=== PATIENT | female | born 1985 | race Caucasian/White ===

== ENCOUNTER → 2017-07-08 | Outpatient (CLI) | payer OTHER ==
[2017-07-08 14:05] LABS: Basophils # (A) 0.1 k/uL (0-0.2); Basophils % (A) 1 %; Eosinophils # (A) 0.3 k/uL (0-0.7); Eosinophils % (A) 2 %; HCT 38.6 % (34.0-46.0); HGB 12.5 gm/dL (11.4-16.0); Lymphocytes # (A) 3.2 k/uL (1.0-4.8); Lymphocytes % (A) 30 %; MCH 27.3 pg (25.0-35.0); MCHC 32.5 g/dL (31.0-37.0); Monocytes # (A) 0.6 k/uL (0-1.0); Monocytes % (A) 5 %; Neutrophils # (A) 6.5 k/uL (1.3-7.7); Neutrophils % (A) 60 %; Platelet Count 295 k/uL (150-450); RBC 4.59 m/uL (3.80-5.40); RDW 12.9 % (11.5-15.5); WBC 10.7 k/uL (3.8-10.6)
[2017-07-11 14:12] LABS: Alt. alternata IgE Class CLASS III; Alternaria alternata IgE 4.61 kU/L (<0.35); Asperg. fumagatus IgE 0.74 kU/L (<0.35); Asperg. fumagatus IgE Class CLASS II; Bermuda Grass IgE <0.35 kU/L (<0.35); Birch(Com.Silvr) IgE <0.35 kU/L (<0.35); Birch(Com.Silvr) IgE Class CLASS 0; Cat Epith & Dander IgE >100.00 kU/L (<0.35); Cat Epith & Dander IgE Class CLASS VI; Clad herbarum IgE <0.35 kU/L (<0.35); Cockroach IgE 3.35 kU/L (<0.35); Cottonwood IgE 2.01 kU/L (<0.35); Dermato. farinae IgE Class CLASS I; Elm IgE <0.35 kU/L (<0.35); Maple (Box Elder) IgE 0.96 kU/L (<0.35); Maple (Box Elder) IgE Class CLASS II; Mountain Cedar IgE <0.35 kU/L (<0.35); Mountain Cedar IgE Class CLASS 0; Mouse Urine IgE Class CLASS 0; Nettle IgE <0.35 kU/L (<0.35); Nettle IgE Class CLASS 0; Oak IgE <0.35 kU/L (<0.35); Penicillium notatum IgE Class CLASS 0; Rough Marshelder IgE 1.75 kU/L (<0.35); Rough Marshelder IgE Class CLASS II; Timothy Grass IgE 9.72 kU/L (<0.35); White Ash IgE Class CLASS 0
== END | disposition home or self-care (01) ==
LOC: LABWHC1 13:17
PROVIDERS: ATTEND Internal Medicine Sleep Medicine
DX: J03.01 Acute recurrent streptococcal tonsillitis (principal); B44.81 Allergic bronchopulmonary aspergillosis
CPT/HCPCS: 36415; 82785; 85025; 86001; 86003; 86606; 86609; 87070

== ENCOUNTER 2017-10-06 18:30 | Emergency (ER) | payer OTHER ==
[2017-10-06 18:35] VITALS: BP 158/80; PULSE 81; RESP 18; TEMP 98.9
--- NOTE | 2017-10-06 18:54 | ED ---
ENT HPI - General Chief complaint: ENT Stated complaint: BLEEDING AND VOMITING POST OP TONSILECTOMY Time Seen by Provider: 10/06/17 18:46 Source: patient, RN notes reviewed Mode of arrival: ambulatory Limitations: no limitations - History of Present Illness Initial comments: 32-year-old female presents emergency Department chief complaint of bleeding post tonsillectomy. Patient states she had her tonsils removed one week ago at [place]. She states that she coughed and states that she has some blood, and she then vomited. Patient states the bleeding has stopped. Patient states that she still been having ongoing pain from the surgery. Patient has no difficulty swallowing or difficulty breathing - Related Data Allergies Allergy/AdvReac Type Severity Reaction Status Date / Time amoxicillin Allergy Unknown Verified 10/06/17 18:32 Review of Systems ROS Statement: Those systems with pertinent positive or pertinent negative responses have been documented in the HPI. ROS Other: All systems not noted in ROS Statement are negative. Past Medical History Past Medical History: Hypertension History of Any Multi-Drug Resistant Organisms: None Reported Past Surgical History: Tonsillectomy Past Psychological History: Anxiety, Depression, PTSD Smoking Status: Never smoker Past Alcohol Use History: None Reported Past Drug Use History: None Reported General Exam Limitations: no limitations General appearance: alert, in no apparent distress Head exam: Present: atraumatic, normocephalic, normal inspection Eye exam: Present: normal appearance, PERRL, EOMI. Absent: scleral icterus, conjunctival injection, periorbital swelling ENT exam: Present: mucous membranes moist. Absent: normal exam, normal oropharynx (Status post tonsillectomy. There is no active bleeding. There is an area of ecchymosis noted on the left tonsillar region) Neck exam: Present: normal inspection, full ROM. Absent: tenderness, meningismus, lymphadenopathy Respiratory exam: Present: normal lung sounds bilaterally. Absent: respiratory distress, wheezes, rales, rhonchi, stridor Cardiovascular Exam: Present: regular rate, normal rhythm, normal heart sounds. Absent: systolic murmur, diastolic murmur, rubs, gallop, clicks Skin exam: Present: warm, dry, intact, normal color. Absent: rash Course Vital Signs 10/06/17 18:32 Temperature 98.9 F Pulse Rate 81 Respiratory 18 Rate Blood Pressure 158/80 O2 Sat by Pulse 100 Oximetry Medical Decision Making - Medical Decision Making 32-year-old female presented for tonsillectomy postop bleeding. Patient had no rebleeding. In emergency department. She has gargled cold water. Patient has been stable for 45 minutes. Patient will be discharged at this time. She is recommended return for any return of symptoms or any other concerns Disposition Clinical Impression: Post-tonsillectomy hemorrhage Disposition: HOME SELF-CARE Condition: Stable Instructions: *Surgery [facility] - ([facility]) Tonsillectomy/Adenoidectomy Post-Op Instructions Additional Instructions: Please return to the Emergency Department if symptoms worsen or any other concerns. Is patient prescribed a controlled substance at d/c from ED?: No Referrals: Keely Dockery MD [Primary Care Provider] - 1-2 days Time of Disposition: 19:07
== END 2017-10-06 19:15 | disposition home or self-care (01) ==
LOC: EC 18:30
DX: J95.830 Postprocedural hemorrhage of a respiratory system organ or structure following a respiratory system procedure (principal); Z88.0 Allergy status to penicillin; Z90.89 Acquired absence of other organs
CPT/HCPCS: 99283

== ENCOUNTER → 2023-04-07 | Outpatient (CLI) | payer MEDICAID, BC, OTHER | END | disposition home or self-care (01) | LOC: LABMAIN 17:56 | PROVIDERS: ATTEND Internal Medicine | DX: Z53.9 Procedure and treatment not carried out, unspecified reason (principal) ==

== ENCOUNTER → 2024-07-18 | Outpatient (CLI) | payer MEDICAID ==
[2024-07-18 18:36] LABS: Basophils # (A) 0.08 X 10*3/uL (0.00-0.10); Basophils % (A) 0.6 %; Eosinophils # (A) 0.22 X 10*3/uL (0.04-0.35); Eosinophils % (A) 1.7 %; HCT 44.7 % (37.2-46.3); HGB 14.5 g/dL (12.0-15.0); Lymphocytes # (A) 3.74 X 10*3/uL (0.90-5.00); Lymphocytes % (A) 29.4 %; MCH 27.6 pg (27.0-32.0); MCHC 32.4 g/dL (32.0-37.0); Mean Platelet Volume 9.7 FL (9.5-12.2); Monocytes # (A) 0.81 X 10*3/uL (0.20-1.00); Monocytes % (A) 6.4 %; NRBC Per 100 WBC 0 X 10*3/uL (0.00-0.01); Neutrophils # (A) 7.81 X 10*3/uL (1.80-7.70); Neutrophils % (A) 61.5 %; Platelet Count 280 X 10*3/uL (140-440); RBC 5.26 X 10*6/uL (4.10-5.20); RDW 13.6 % (11.5-14.5); WBC 12.71 X 10*3/uL (4.50-10.00)
[2024-07-18 18:59] LABS: ALT 37 U/L (8-44); AST 27 U/L (13-35); Albumin 4.1 g/dL (3.8-4.9); Albumin/Globulin Ratio 1.86 Ratio (1.60-3.17); Alkaline Phosphatase 93 U/L (41-126); BUN/Creat Ratio 19.22 Ratio (12.00-20.00); Blood Urea Nitrogen 17.3 mg/dL (9.0-27.0); Calcium 9.2 mg/dL (8.7-10.3); Carbon Dioxide 22.9 mmol/L (21.6-31.8); Chloride 105 mmol/L (96-109); Chol/HDL Ratio 4.54 Ratio; Globulin 2.2 g/dL (1.6-3.3); Glucose 91 mg/dL (70-110); LDL Cholesterol,Calculated 85.2 mg/dL (0.0-131.0); Potassium 3.9 mmol/L (3.5-5.5); Sodium 140 mmol/L (135-145); Total Bilirubin 0.5 mg/dL (0.3-1.2); Total Protein 6.3 g/dL (6.2-8.2)
== END | disposition home or self-care (01) ==
LOC: LABWHC1 15:21
PROVIDERS: ATTEND Internal Medicine
DX: Z13.220 Encounter for screening for lipoid disorders (principal); I10 Essential (primary) hypertension; E55.9 Vitamin D deficiency, unspecified; E11.9 Type 2 diabetes mellitus without complications
CPT/HCPCS: 36415; 80053; 80061; 82043; 82306; 82570; 83036; 85025

== ENCOUNTER → 2024-07-20 | Outpatient (CLI) | payer MEDICAID ==
--- NOTE | 2024-07-23 07:21 | MM ---
Reason for Exam: Screening (asymptomatic). Baseline mammogram. Patient History: Menarche at age 7. First Full-Term at age 22. Currently using Hormonal Contraceptives, starting at age 23. 04/28/2016, Benign Core Biopsy on the right side. Risk Values: Candice 5 year model risk: 0.9%. NCI Lifetime model risk: 12.0%. Prior Study Comparison: 04/28/2016 Right Diagnostic Mammogram, [facility]. Patient's first Mammogram. Tissue Density: There are scattered areas of fibroglandular density. Findings: Analyzed By CAD. A few scattered tiny benign-appearing round calcifications throughout the bilateral breasts are present. There is a new 7 mm round circumscribed mass middle to posterior depth upper outer quadrant at site of biopsy clip. Overall Assessment: Incomplete: need additional imaging evaluation, BI-RAD 0 Management: Diagnostic Breast Ultrasound of the right breast. . Patient should continue monthly self-breast exams. A clinical breast exam by your physician is recommended on an annual basis. This exam should not preclude additional follow-up of suspicious palpable abnormalities. Note on Candice scores and lifetime risk: 1. A Candice score greater than 3% is considered moderate risk. If this is the case, consider specialist referral to assess eligibility for a risk reducing agent. 2. If overall lifetime risk for the development of breast cancer is 20% or higher, the patient may qualify for future screening with alternating mammogram and breast MRI. [facility], , 07/23/2024 7:17 AM. Electronically signed and approved by: David Padilla M.D.
== END | disposition home or self-care (01) ==
LOC: RADMAMWWP 15:25
PROVIDERS: ATTEND Internal Medicine
DX: Z12.31 Encounter for screening mammogram for malignant neoplasm of breast (principal); R92.323 Mammographic fibroglandular density, bilateral breasts; R92.1 Mammographic calcification found on diagnostic imaging of breast
CPT/HCPCS: 77063; 77067

== ENCOUNTER → 2024-07-26 | Outpatient (CLI) | payer MEDICAID ==
--- NOTE | 2024-07-26 15:58 | USB ---
Reason for Exam: Follow-up at short interval from prior study. Patient History: Menarche at age 7. First Full-Term at age 22. Currently using Hormonal Contraceptives, starting at age 23. 04/28/2016, Benign Core Biopsy on the right side. Risk Values: Candice 5 year model risk: 0.9%. NCI Lifetime model risk: 12.0%. Technique: Method: Targeted. Prior Study Comparison: 04/28/2016 Right Diagnostic Mammogram, [facility]. 07/20/2024 Bilateral MG 3D screening mammo w/cad, [facility]. Findings: The lateral section of the breast of the right breast, the axilla of the right breast and the retroareolar of the right breast were scanned. Thyroid ultrasound redemonstrates an oval circumscribed hypoechoic lesion measuring 7 x 6 x 4 mm identified positioning centimeters distance from nipple adjacent biopsy clip not significantly changed from 2016 ultrasound almost certainly benign. Overall Assessment: Probably benign, BI-RAD 3 Management: Diagnostic Mammogram of the right breast in 6 months. Diagnostic Breast Ultrasound of the right breast in 6 months. Precautionary short-term follow-up . A clinical breast exam by your physician is recommended on an annual basis and results should be correlated with mammographic findings. This exam should not preclude additional follow-up of suspicious palpable abnormalities. Results were given to the patient verbally at the time of exam. [facility], , 07/26/2024 3:54 PM. Electronically signed and approved by: David Padilla M.D.
== END | disposition home or self-care (01) ==
LOC: RADUSWWP 15:33
PROVIDERS: ATTEND Internal Medicine
DX: R92.8 Other abnormal and inconclusive findings on diagnostic imaging of breast (principal); Z79.3 Long term (current) use of hormonal contraceptives

== ENCOUNTER 2024-08-20 22:56 | Observation (INO) | payer MEDICAID ==
[2024-08-20 23:00] VITALS: RESP 18
--- NOTE | 2024-08-20 23:12 | ED ---
Chest Pain HPI - General Chief Complaint: Chest Pain Stated Complaint: Chest Tightness, Headache Time Seen by Provider: 08/20/24 22:59 Source: patient, RN notes reviewed, old records reviewed Mode of arrival: ambulatory Limitations: no limitations - History of Present Illness Initial Comments: This is a 38 female presenting with chest pain really left jaw pain and neck pain for 2 days with now chest pain chest pain is worse with a deep breath. History of the stress test patient is had stress test in the past secondary to abnormal EKG and chest pain. Patient does have high blood pressure no cholesterol no diabetes non-smoker. MD Complaint: chest pain, other (Left jaw pain left neck pain) -: days(s) Onset: during rest, during exertion Pain Location: left chest Pain Radiation: jaw/teeth Severity: moderate Severity scale (1-10): 4 Quality: aching Consistency: constant Improves With: nothing Worsens With: nothing Anginal Symptoms: dyspnea Other Symptoms: palpitations Treatments Prior to Arrival: none - Related Data Home Medications Medication Instructions Recorded Confirmed Ibuprofen [Motrin] 800 mg PO TID PRN 08/21/24 08/21/24 Tirzepatide [Mounjaro] 10 mg SQ CHEEMA 08/21/24 08/21/24 levonorgestreL [Mirena] 1 implant IY DIRECTED 08/21/24 08/21/24 lisinopriL [Zestril] 20 mg PO DAILY 08/21/24 08/21/24 Previous Rx's Medication Instructions Recorded Pantoprazole [Protonix] 40 mg PO DAILY #14 tab 08/21/24 Allergies Allergy/AdvReac Type Severity Reaction Status Date / Time amoxicillin Allergy Rash/Hives Verified 08/21/24 07:35 Penicillins Allergy Rash/Hives Verified 08/21/24 07:35 sulfamethoxazole Allergy Rash/Hives Verified 08/21/24 07:35 [From Bactrim] trimethoprim [From Bactrim] Allergy Rash/Hives Verified 08/21/24 07:35 Review of Systems ROS Statement: Those systems with pertinent positive or pertinent negative responses have been documented in the HPI. ROS Other: All systems not noted in ROS Statement are negative. EKG Findings - EKG Comments: EKG Findings:: EKG sinus 80 NC 180 QRS 87 QTc 433 - EKG Results: EKG: interpreted by SHANIQUA Past Medical History Past Medical History: Hypertension History of Any Multi-Drug Resistant Organisms: None Reported Past Surgical History: Tonsillectomy Past Psychological History: Anxiety, Depression, PTSD Past Alcohol Use History: None Reported Past Drug Use History: None Reported - Past Family History Mother Family Medical History: Hyperlipidemia, Hypertension Father Family Medical History: Hyperlipidemia, Hypertension General Exam General appearance: alert, in no apparent distress Head exam: Present: atraumatic, normocephalic, normal inspection Eye exam: Present: normal appearance, PERRL, EOMI. Absent: scleral icterus, conjunctival injection, periorbital swelling ENT exam: Present: normal exam, mucous membranes moist Neck exam: Present: normal inspection. Absent: tenderness, meningismus, lymphadenopathy Respiratory exam: Present: normal lung sounds bilaterally. Absent: respiratory distress, wheezes, rales, rhonchi, stridor Cardiovascular Exam: Present: regular rate, normal rhythm, normal heart sounds. Absent: systolic murmur, diastolic murmur, rubs, gallop, clicks GI/Abdominal exam: Present: soft, normal bowel sounds. Absent: distended, tenderness, guarding, rebound, rigid Extremities exam: Present: normal inspection, full ROM, normal capillary refill. Absent: tenderness, pedal edema, joint swelling, calf tenderness Back exam: Present: normal inspection Neurological exam: Present: alert, oriented X3, CN II-XII intact Psychiatric exam: Present: normal affect, normal mood Skin exam: Present: warm, dry, intact, normal color. Absent: rash Course Vital Signs 08/20/24 08/21/24 08/21/24 22:58 00:20 01:35 Temperature 97.9 F Pulse Rate 82 75 66 Respiratory 18 18 18 Rate Blood Pressure 154/103 139/98 150/101 O2 Sat by Pulse 98 95 95 Oximetry 08/21/24 08/21/24 08/21/24 04:49 05:23 07:09 Temperature 98.1 F Pulse Rate 68 73 73 Respiratory 18 18 18 Rate Blood Pressure 126/76 112/70 118/80 O2 Sat by Pulse 95 96 98 Oximetry 08/21/24 08/21/24 08/21/24 07:16 11:17 13:02 Temperature 98.1 F Pulse Rate 73 78 Respiratory 18 18 18 Rate Blood Pressure 131/91 138/92 O2 Sat by Pulse 98 97 Oximetry - Reevaluation(s) Reevaluation #1: 08/20/24 23:21 Medical records reviewed Reevaluation #2: 08/21/24 01:36 Patient still with nausea vomiting here in the ER Reevaluation #3: 08/21/24 01:36 Patient informed of results questions answered Reevaluation #4: Was pt. sent in by a medical professional or institution (, JONATHAN, LAND DEVELOPMENT PROJECT MANAGER, urgent care, hospital, or [place] health [place] facility...) When possible be specific @ -no Did you speak to anyone other than the patient for history (EMS, parent, family, police, friend...)? What history was obtained from this source @ -no Did you review nursing and triage notes (agree or disagree)? Why? @ -agree Are old charts reviewed (outside hosp., previous admission, EMS record, old EKG, old radiological studies, urgent care reports/EKG's, [place] health care facility records)? Report findings @ -yes Differential Diagnosis (chest pain, altered mental status, abdominal pain women, abdominal pain men, vaginal bleeding, weakness, fever, dyspnea, syncope, headache, dizziness, GI bleed, back pain, seizure, CVA, palpatations, mental health, musculoskeletal)? @ -prior EKG interpreted by me (3pts min.). @ -yes X-rays interpreted by me (1pt min.). @ -yes negative for acute disease CT interpreted by me (1pt min.). @ -Yes negative for acute disease U/S interpreted by me (1pt. min.). @ -no What testing was considered but not performed or refused? (CT, X-rays, U/S, labs)? Why? @ -none What meds were considered but not given or refused? Why? @ -none Did you discuss the management of the patient with other professionals (professionals i.e. JONATHAN Pimentel, LAND DEVELOPMENT PROJECT MANAGER, lab, RT, psych nurse, social service coordinator, bindery machine operator, teacher, loan service officer, case aide)? Give summary @ -no Was smoking cessation discussed for >3mins.? @ -no Was critical care preformed (if so, how long)? @ -no Were there social determinants of health that impacted care today? How? (Homelessness, low income, unemployed, alcoholism, drug addiction, transportation, low edu. Level, literacy, decrease access to med. care, long term, rehab)? @ -none Was there de-escalation of care discussed even if they declined (Discuss DNR or withdrawal of care, Hospice)? DNR status @ -no What co-morbidities impacted this encounter? (DM, HTN, Smoking, COPD, CAD, Cancer, CVA, ARF, Chemo, Hep., AIDS, mental health diagnosis, sleep apnea, morbid obesity)? @ -none Was patient admitted / discharged? Hospital course, mention meds given and route, prescriptions, significant lab abnormalities, going to OR and other pertinent info. @ - 38 female to ER for chest pain left-sided jaw pain patient admitted for chest pain observation found to have pancreatitis here in the ER as well history of gallbladder surgery patient kept n.p.o. pain control and will admit for further supportive care Admitted acute pancreatitis with chest pain Undiagnosed new problem with uncertain prognosis? @ -no Drug Therapy requiring intensive monitoring for toxicity (Heparin, Nitro, Insulin, Cardizem)? @ -no Were any procedures done? @ -no Diagnosis/symptom? @ - Acute, or Chronic, or Acute on Chronic? @ -Acute Uncomplicated (without systemic symptoms) or Complicated (systemic symptoms)? @ -Complicated Side effects of treatment? @ -no Exacerbation, Progression, or Severe Exacerbation? @ -exacerbation Poses a threat to life or bodily function? How? (Chest pain, [place], [place], pneumonia, PE, COPD, DKA, ARF, appy, cholecystitis, CVA, Diverticulitis, Homicidal, Suicidal, threat to staff... and all critical care pts) @ -yes with chest pain Reevaluation #5: Differential Chest Pain: Stable Angina, Unstable Angina, STEMI, NSTEMI Aortic Dissection, Pneumothorax, Musculoskeletal, Esophageal Spasm GERD, Cholecystitis, Pancreatitis, Zoster, this is not meant to be an all-inclusive list. - Consultations Consultation #1: Spoke with [facility] who agrees to admit this patient Chest Pain MDM - MDM 38 female to ER for chest pain left-sided jaw pain patient admitted for chest pain observation found to have pancreatitis here in the ER as well history of gallbladder surgery patient kept n.p.o. pain control and will admit for further supportive care Disposition Clinical Impression: Atypical chest pain, Chest pain, Pancreatitis Disposition: ADMITTED IP TO THIS HOSP Condition: Stable Is patient prescribed a controlled substance at d/c from ED?: No Time of Disposition: 01:00
[2024-08-20 23:24] LABS: Basophils # (A) 0.07 10*3/uL (0.00-0.10); Basophils % (A) 0.6 %; Eosinophils # (A) 0.29 10*3/uL (0.04-0.35); Eosinophils % (A) 2.4 %; HCT 41.8 % (37.2-46.3); HGB 13.8 g/dL (12.0-15.0); Lymphocytes % (A) 30.7 %; MCH 27.8 pg (27.0-32.0); MCV 84.3 fL (80.0-97.0); Mean Platelet Volume 8.9 fL (9.5-12.2); Monocytes % (A) 8.3 %; Neutrophils # (A) 6.96 10*3/uL (1.80-7.70); Neutrophils % (A) 57.6 %; Platelet Count 258 10*3/uL (140-440); RBC 4.96 10*6/uL (4.10-5.20); RDW 13.8 % (11.5-14.5); WBC 12.07 10*3/uL (4.50-10.00)
[2024-08-20 23:40] LABS: ALT 259 U/L (4-34); African American GFR (CKD) >90 (>60 ml/min/1.73 sqM); Anion Gap 6 mmol/L; Blood Urea Nitrogen 15 mg/dL (7-17); Calcium 8.9 mg/dL (8.4-10.2); Carbon Dioxide 26 mmol/L (22-30); Chloride 103 mmol/L (98-107); Glucose 101 mg/dL (74-99); Lipase 590 U/L (23-300); Non-African American GFR(CKD) >90 (>60 ml/min/1.73 sqM); Sodium 135 mmol/L (137-145); Total Bilirubin 1.1 mg/dL (0.2-1.3)
[2024-08-20 23:42] LABS: AST 226 U/L (14-36); Alkaline Phosphatase 131 U/L (38-126); Potassium 4.3 mmol/L (3.5-5.1); Total Protein 6.9 g/dL (6.3-8.2)
[2024-08-20 23:46] LABS: INR 0.8 (<1.2); Partial Thromboplastin Time 22.9 sec (22.0-30.0); Prothrombin Time 9.4 sec (10.0-12.5)
[2024-08-20 23:48] LABS: NT-Pro-B-Type Natriuretic Pept <20 pg/mL
[2024-08-21] MEDS: KETOROLAC 15 MG/ML 1 ML VIAL IVP STA (00:33)
[2024-08-21] MEDS: SODIUM CHLORIDE 0.9% 1,000 ML IV ONE (00:39)
[2024-08-21] MEDS: HYDROmorphone 1 MG/ML 1 ML SYRINGE IVP STA (00:39)
[2024-08-21] MEDS: ONDANSETRON 4 MG/2 ML VIAL IVP STA ×2 (00:49→01:28)
[2024-08-21] MEDS ORDERED: NALOXONE 0.4 MG/ML 1 ML VIAL IV PRN (01:33)
[2024-08-21] MEDS ORDERED: ONDANSETRON 4 MG/2 ML VIAL IVP PRN (01:33)
[2024-08-21] MEDS ORDERED: KETOROLAC 15 MG/ML 1 ML VIAL IVP PRN (01:33)
[2024-08-21] MEDS ORDERED: HYDROmorphone 1 MG/ML 1 ML SYRINGE IVP PRN (01:33)
--- NOTE | 2024-08-21 01:39 | XR ---
EXAM: XR Chest, 2 Views CLINICAL HISTORY: ITS.REASON XR Reason: Chest Pain TECHNIQUE: Frontal and lateral views of the chest. COMPARISON: No relevant prior studies available. FINDINGS: Lungs: No consolidation or mass. Pleural space: No effusion. Heart: Mild cardiomegaly. Bones/joints: No acute findings. IMPRESSION: No acute cardiopulmonary process.
[2024-08-21] MEDS: SODIUM CHLORIDE 0.9% 1,000 ML IV SCH (02:52)
--- NOTE | 2024-08-21 02:58 | CT ---
EXAM: CT Abdomen and Pelvis With Intravenous Contrast CLINICAL HISTORY: ITS.REASON CT Reason: pain ,pancreatitis TECHNIQUE: Axial computed tomography images of the abdomen and pelvis with intravenous contrast. CTDI is 49 mGy and DLP is 2529.6 mGy-cm. This CT exam was performed using one or more of the following dose reduction techniques: automated exposure control, adjustment of the mA and/or kV according to patient size, and/or use of iterative reconstruction technique. COMPARISON: No relevant prior studies available. FINDINGS: Lung bases: Unremarkable. No mass. No consolidation. ABDOMEN: Liver: Unremarkable. No mass. Gallbladder and bile ducts: Unremarkable. No calcified stones. No ductal dilation. Pancreas: Unremarkable. No mass. No ductal dilation. Spleen: Unremarkable. No splenomegaly. Adrenals: Unremarkable. No mass. Kidneys and ureters: Nonobstructing 4 mm LEFT lower pole renal stone. Stomach and bowel: Diverticulosis, without acute diverticulitis. No small bowel obstruction. No free intraperitoneal air. PELVIS: Appendix: No findings to suggest acute appendicitis. Bladder: Unremarkable. No mass. Reproductive: ED in the uterus. LEFT ovarian cyst measures 2.0 x 2.0 cm. ABDOMEN and PELVIS: Intraperitoneal space: Unremarkable. No free air. No significant fluid collection. Bones/joints: No acute fracture. No dislocation. Soft tissues: Unremarkable. Vasculature: Unremarkable. No abdominal aortic aneurysm. Lymph nodes: Unremarkable. No enlarged lymph nodes. IMPRESSION: 1. Nonobstructing 4 mm LEFT lower pole renal stone. 2. Diverticulosis, without acute diverticulitis. No small bowel obstruction. No free intraperitoneal air. 3. No pancreatitis.
[2024-08-21] MEDS: lisinopriL 20 MG TAB PO SCH (08:08)
[2024-08-21] MEDS: PANTOPRAZOLE 40 MG/10 ML VIAL IV SCH (08:08)
[2024-08-21] MEDS: LACTATED RINGERS 1,000 ML IV SCH (08:09)
[2024-08-21 12:19] LABS: ALT 216 U/L (4-34); AST 136 U/L (14-36); African American GFR (CKD) >90 (>60 ml/min/1.73 sqM); Albumin 3.5 g/dL (3.5-5.0); Albumin/Globulin Ratio 1.3; Alkaline Phosphatase 133 U/L (38-126); Anion Gap 4 mmol/L; Blood Urea Nitrogen 11 mg/dL (7-17); Calcium 8.8 mg/dL (8.4-10.2); Carbon Dioxide 26 mmol/L (22-30); Chloride 104 mmol/L (98-107); Globulin 2.6 g/dL; Glucose 80 mg/dL (74-99); Non-African American GFR(CKD) >90 (>60 ml/min/1.73 sqM); Potassium 3.7 mmol/L (3.5-5.1); Sodium 134 mmol/L (137-145); Total Bilirubin 1.1 mg/dL (0.2-1.3); Total Protein 6.1 g/dL (6.3-8.2)
--- NOTE | 2024-08-21 12:30 | US ---
EXAMINATION TYPE: US abdomen limited DATE OF EXAM: 08/21/2024 COMPARISON: CT: Today CLINICAL INDICATION: Female, 38 years old with history of liver/gb/pancreas; pancreatitis TECHNIQUE: Grayscale and color Doppler imaging of the right upper quadrant was performed. FINDINGS: EXAM MEASUREMENTS: Liver Length: 15.7 cm Gallbladder Wall: Surgically absent CBD: 0.2 cm Right Kidney: 10.9 x 6.2 x 4.9 cm COTTAGE SUPERVISOR NOTES: Pancreas: only the head is visualized and appears wnl. Tail obscured by overlying bowel gas Liver: heterogeneous Gallbladder: Surgically absent CBD: wnl Right Kidney: wnl The visualized portions of the pancreas unremarkable. Liver is heterogenous without cirrhotic morphol ogy. No focal lesion. Gallbladder surgically absent. Common bile duct is within normal limits. Right kidney demonstrates no hydronephrosis, shadowing calculus or solid mass. IMPRESSION: 1. No ultrasound evidence for acute process. 2. Post cholecystectomy changes. [facility], , 08/21/2024 12:27 PM
--- NOTE | 2024-08-21 13:48 | P.HPIM ---
History of Present Illness H&P Date: 08/21/24 History of present illness; Patient is a 38 female with hypertension and depression who presents with chest pain. She states her symptoms began 2 days ago with left jaw and neck pain extending to her shoulder for 2 days, which has now progressed to chest pain. Chest pain is worse with a deep breath. She was recently treated for cold and given steroid with antibiotics. She states she completed a stress test in the past, secondary to abnormal EKG and chest pain. She denies abdominal pain, naus ea, vomiting, constipation, diarrhea. She is otherwise well. Spoke with the ER physician, patient admission was accepted by internal medicine service for treatment. REVIEW OF SYSTEMS: Pertinent positives and negatives noted in HPI. PHYSICAL EXAMINATION: Vitals reviewed GENERAL: Resting comfortably in bed. Obese. EYES: PERRL, no scleral injection or icterus. No vision loss HENT: Normocephalic, atraumatic, hearing grossly intact, moist mucous membranes NECK: No tracheal deviation, full range of motion. CARDIOVASCULAR: S1 and S2 present. No murmurs, rubs, or gallops. PULMONARY: Chest is clear to auscultation, no wheezing, rhonchi, or crackles. ABDOMEN: Soft, nontender, nondistended. No palpable organomegaly. MUSCULOSKELETAL: No apparent joint swelling and deformities. EXTREMITIES: No apparent cyanosis, clubbing. No pedal edema. NEUROLOGICAL: Alert and oriented. Gross neurological examination with no apparent focal deficits. SKIN: No apparent rashes. ER FINDINGS: Labs significant for WBC 12.0, PT 9.4, sodium 135, glucose 101, AST 226, ALT 259, ALP 131, troponin 3 times negative, proBNP negative, lipase 590 EKG independently interpreted showed sinus rhythm heart rate of 80, QTc 433, no ST segment elevation or depression seen, no T-wave inversions seen. Chest x-ray done independently interpreted showed no acute cardiopulmonary process. Abdominal pelvis CT independently read with findings of nonobstructing 4 mm left lower pole renal stone, diverticulosis without acute diverticulitis no SBO, no pancreatitis RUQ ultrasound independently interpreted status post cholecystectomy, no pancreatitis, liver without cirrhotic pathology Assessment and Plan: In summary, patient is a 38 female with hypertension and depression who presents with chest pain. # Elevated lipase #Transaminitis # Left shoulder pain #Atypical chest pain #Leukocytosis, likely reactive Initial lipase 590 - Lipid panel 07/2024 findings of triglycerides elevated 194, HDL [address] abdomen with contrast nonobstructing 4 mm left lower pole renal stone, diverticulosis without acute diverticulitis no SBO, no pancreatitis US abdomen postcholecystectomy, no pancreatitis, heterogeneous liver without cirrhotic morphology. D-dimer negative Continue pain management Start LR 150mL/hr Continue regular diet Monitor vitals and urine output Chronic Medical Conditions #Anxiety/Depression #Hypertension resume home medications DVT ppx: Subq Lovenox 40 meq daily Code status: Full code F: P.o. E: Replete as needed N: Regular diet as tolerated Anticipated discharge place: Home Anticipated discharge time: Today Dr. Rolle seen patient with resident, present during exam, and agreed with findings. Dictation was produced using [employer] dictation software. Please excuse any grammatical, word or spelling errors. Past Medical History Past Medical History: Hypertension Additional Past Medical History / Comment(s): Sleep Apnea History of Any Multi-Drug Resistant Organisms: None Reported Past Surgical History: Tonsillectomy Past Psychological History: Anxiety, Depression, PTSD Past Alcohol Use History: None Reported Past Drug Use History: None Reported - Past Family History Mother Family Medical History: Hyperlipidemia, Hypertension Father Family Medical History: Hyperlipidemia, Hypertension Medications and Allergies Home Medications Medication Instructions Recorded Confirmed Type Ibuprofen [Motrin] 800 mg PO TID PRN 08/21/24 08/21/24 History Tirzepatide [Mounjaro] 10 mg SQ CHEEMA 08/21/24 08/21/24 History levonorgestreL [Mirena] 1 implant IY DIRECTED 08/21/24 08/21/24 History lisinopriL [Zestril] 20 mg PO DAILY 08/21/24 08/21/24 History Allergies Allergy/AdvReac Type Severity Reaction Status Date / Time amoxicillin Allergy Rash/Hives Verified 08/21/24 07:35 Penicillins Allergy Rash/Hives Verified 08/21/24 07:35 sulfamethoxazole Allergy Rash/Hives Verified 08/21/24 07:35 [From Bactrim] trimethoprim [From Bactrim] Allergy Rash/Hives Verified 08/21/24 07:35 Physical Exam Vitals: Vital Signs Temp Pulse Resp BP Pulse Ox 08/21/24 07:16 18 08/21/24 07:09 98.1 F 73 18 112/70 98 08/21/24 05:23 73 18 112/70 96 08/21/24 04:49 68 18 126/76 95 08/21/24 01:35 66 18 150/101 95 08/21/24 00:20 75 18 139/98 95 08/20/24 22:58 97.9 F 82 18 154/103 98 Intake and Output 08/20/24 08/21/24 08/21/24 22:59 06:59 14:59 Other: Weight 115.666 kg Results CBC & Chem 7: 08/20/24 23:16 08/21/24 11:52 Labs: Abnormal Lab Results - Last 24 Hours (Table) 08/20/24 08/20/24 08/20/24 Range/Units 23:16 23:16 23:16 WBC 12.07 H (4.50-10.00) 10*3/uL MPV 8.9 L (9.5-12.2) fL Immature Gran # 0.05 H (0.00-0.04) 10*3/uL PT 9.4 L (10.0-12.5) sec Sodium 135 L (137-145) mmol/L Glucose 101 H (74-99) mg/dL AST 226 H (14-36) U/L ALT 259 H (4-34) U/L Alkaline Phosphatase 131 H (38-126) U/L Lipase 590 H (23-300) U/L
--- NOTE | 2024-08-21 13:57 | P.DS ---
Providers Date of admission: 08/21/24 01:35 Expected date of discharge: 08/21/24 Attending physician: Pam Degroot Primary care physician: Keely Dockery Hospital Course: Discharge diagnoses; # Elevated lipase #Transaminitis # Left shoulder pain #Atypical chest pain #Leukocytosis, likely reactive #Anxiety/Depression #Hypertension Hospital course; History of present illness; Patient is a 38 female with hypertension and depression who presents with chest pain. She states her symptoms began 2 days ago with left jaw and neck pain extending to her shoulder for 2 days, which has now progressed to chest pain. Chest pain is worse with a deep breath. She was recently treated for cold and given steroid with antibiotics. She states she completed a stress test in the past, secondary to abnormal EKG and chest pain. She denies abdominal pain, nausea, vomiting, constipation, diarrhea. She is otherwise well. ER FINDINGS: Labs significant for WBC 12.0, PT 9.4, sodium 135, glucose 101, AST 226, ALT 259, ALP 131, troponin 3 times negative, proBNP negative, lipase 590 EKG independently interpreted showed sinus rhythm heart rate of 80, QTc 433, no ST segment elevation or depression seen, no T-wave inversions seen. Chest x-ray done independently interpreted showed no acute cardiopulmonary process. Abdominal pelvis CT independently read with findings of nonobstructing 4 mm left lower pole renal stone, diverticulosis without acute diverticulitis no SBO, no pancreatitis RUQ ultrasound independently interpreted status post cholecystectomy, no pancreatitis, liver without cirrhotic pathology Discharged home in stable condition. Given short course of pantoprazole for discharge. Patient to follow-up with PCP and repeat CMP for transaminitis, CBC for leukocytosis. PHYSICAL EXAMINATION: Vitals reviewed GENERAL: Resting comfortably in bed. Obese. EYES: PERRL, no scleral injection or icterus. No vision loss HENT: Normocephalic, atraumatic, hearing grossly intact, moist mucous membranes NECK: No tracheal deviation, full range of motion. CARDIOVASCULAR: S1 and S2 present. No murmurs, rubs, or gallops. PULMONARY: Chest is clear to auscultation, no wheezing, rhonchi, or crackles. ABDOMEN: Soft, nontender, nondistended. No palpable organomegaly. MUSCULOSKELETAL: No apparent joint swelling and deformities. EXTREMITIES: No apparent cyanosis, clubbing. No pedal edema. NEUROLOGICAL: Alert and oriented. Gross neurological examination with no apparent focal deficits. SKIN: No apparent rashes. Dr. Rolle seen patient with resident, present during exam, and agreed with findings. Dictation was produced using [employer] dictation software. please excuse any grammatical, word or spelling errors. Patient Condition at Discharge: Stable Plan - Discharge Summary New Discharge Prescriptions: New Pantoprazole [Protonix] 40 mg PO DAILY #14 tab Continue Ibuprofen [Motrin] 800 mg PO TID PRN PRN Reason: Pain lisinopriL [Zestril] 20 mg PO DAILY Tirzepatide [Mounjaro] 10 mg SQ CHEEMA levonorgestreL [Mirena] 1 implant IY DIRECTED Discharge Medication List Ibuprofen [Motrin] 800 mg PO TID PRN 08/21/24 [History] Pantoprazole [Protonix] 40 mg PO DAILY #14 tab 08/21/24 [Rx] Tirzepatide [Mounjaro] 10 mg SQ CHEEMA 08/21/24 [History] levonorgestreL [Mirena] 1 implant IY DIRECTED 08/21/24 [History] lisinopriL [Zestril] 20 mg PO DAILY 08/21/24 [History] Follow up Appointment(s)/Referral(s): Keely Dockery MD [Primary Care Provider] - 1-2 days
[2024-08-21 14:09] VITALS: BP 128/86; PULSE 69; TEMP 97.9
== END 2024-08-21 14:48 | disposition home or self-care (01) ==
LOC: EC 22:56 → 6NMEDSUR 08-21 01:35 → 1SOBS 08-21 12:31
PROVIDERS: ADMIT Hospitalist; ATTEND Hospitalist
DX: R07.89 Other chest pain (principal); R74.01 Elevation of levels of liver transaminase levels; R74.8 Abnormal levels of other serum enzymes; M25.512 Pain in left shoulder; D72.829 Elevated white blood cell count, unspecified; M54.2 Cervicalgia; R68.84 Jaw pain; R00.2 Palpitations; R06.00 Dyspnea, unspecified; I10 Essential (primary) hypertension; K57.30 Diverticulosis of large intestine without perforation or abscess without bleeding; N20.0 Calculus of kidney; F32.A Depression, unspecified; F41.9 Anxiety disorder, unspecified; Z79.85 Long-term (current) use of injectable non-insulin antidiabetic drugs; Z79.899 Other long term (current) drug therapy; Z88.0 Allergy status to penicillin; Z88.1 Allergy status to other antibiotic agents; Z88.2 Allergy status to sulfonamides; Z90.49 Acquired absence of other specified parts of digestive tract; Z97.5 Presence of (intrauterine) contraceptive device
CPT/HCPCS: 96376; 96361; 96374; 96375; 99285; 36415; 93005; 85379; 83880; 80053 ×2; 83690; 83735; 84484 ×2; 85025; 85610; 85730; 71046; 76705; 74177; G0378 ×2; J2405; J1171; Q9967; J2470